=== PATIENT | female | born 1960 | race Caucasian/White ===

== ENCOUNTER 2024-07-05 08:20 | Day surgery (SDC) | payer MEDICARE ==
[~2024-07-05] VITALS: Ht 165.1 cm; Wt 79.5 kg
[~2024-07-05 08:20] MED LIST: CEFAZOLIN SODIUM 2 GM/20 ML SYR IV SCH; CYCLOBENZAPRINE10 MG PO; EFFEXOR XR75 MG PO; ESTRADIOL2 MG PO; HYDROCODON-ACE1 EA10 PO; HYDROCODON-ACE1 EA11 PO; IBLOOD GLUCOSE TEST STRIP 1 EA TEST VI PRN; IMITREX6 MG/0.51 SUB-Q; KEFLEX500 MG PO; LACTATED RINGER'S 1,000 ML IV SCH; LIDOCAINE HCL 1% 5 ML SDV INJ ONE; MULTI VITAMIN1 EACH PO; OSTERA TABLET1 EACH PO; OXYBUTYNIN CHLOR5 M1 PO; TRANEXAMIC ACID 2,000 MG in SODIUM CHLORIDE 0.9% 100 ML IV SCH; VITAMIN E OIL-V52 M1 TOP
[2024-07-05] MEDS ORDERED: SEVOFLURANE 250 ML BTL INH ONE (09:15)
[2024-07-05] MEDS ORDERED: Ropivacaine HCl 0.5% 30 ML VIAL ONE (10:04)
[2024-07-05] MEDS ORDERED: DEXAMETHASONE SOD PHOS 4 MG/ML VIAL ONE ×4 (10:04→12:22)
[2024-07-05] MEDS ORDERED: LIDOCAINE HCL 2% 5 ML SDV ONE ×2 (10:04→10:54)
[2024-07-05] MEDS ORDERED: MIDAZOLAM HCL 2 MG/2 ML VIAL ONE (10:04)
[2024-07-05] MEDS ORDERED: propofoL 200 MG/20 ML VIAL ONE (10:54)
[2024-07-05] MEDS ORDERED: ondansetron HCL 4 MG/2 ML VIAL ONE (10:54)
[2024-07-05] MEDS ORDERED: ACETAMINOPHEN 1,000 MG/100 ML VIAL ONE (11:15)
[2024-07-05 11:51] VITALS: BP 131/58
[2024-07-05] MEDS ORDERED: OXYCODONE HCL5 MG PO (11:57)
[2024-07-05] MEDS ORDERED: ondansetron HCL 4 MG/2 ML VIAL IV PRN (12:00)
[2024-07-05] MEDS ORDERED: NALOXONE HCL 0.4 MG SYR IV PRN (12:00)
[2024-07-05] MEDS ORDERED: droPERidol 5 MG/2 ML VIAL IV PRN (12:00)
[2024-07-05] MEDS ORDERED: HYDROmorphone HCL 1 MG/ML SYR IV PRN (12:00)
[2024-07-05] MEDS ORDERED: fentaNYL citrate 50 MCG/ML SDV IV PRN (12:00)
[2024-07-05] MEDS ORDERED: PROCHLORPERAZINE EDISYLATE 10 MG/2 ML VIAL IV PRN (12:00)
[2024-07-05] MEDS ORDERED: IBLOOD GLUCOSE TEST STRIP 1 EA TEST VI PRN (12:00)
[2024-07-05] MEDS ORDERED: BUPIVACAINE HCL 0.25% 30 ML SDV ONE (12:22)
[2024-07-05 13:00] VITALS: BP 112/65
[2024-07-05 13:06] VITALS: BP 112/66
--- NOTE | 2024-07-05 13:23 | NUR ---
AT BS. ASKED TO BRING CRUTCHES IN FOR P T TO SEE PT.
[2024-07-05 14:04] VITALS: BP 102/60
--- NOTE | 2024-07-05 15:02 | NUR ---
UP TO BSC AND VOIDS QS. HAS BEEEN TO PT. WANTS TO GO HOME ATE JELLO AND DRANK WATER. BLOCK EFFECTIVE. INSTRUCTED BLOCK CAN LAST 24 TO 48HRS. USES CRUTCHES AT HOME. DCD PER WC WITH .
--- NOTE | 2024-07-06 07:04 | OR ---
[facility] [address], [place] [address] Signed DATE OF OPERATION: 07/05/2024 SURGEON: Toby Frye MD PREOPERATIVE DIAGNOSIS: Left patellar fracture, displaced. POSTOPERATIVE DIAGNOSIS: Left patellar fracture, displaced. PROCEDURE PERFORMED: Open reduction and internal fixation of left patella. TEXTBOOK ASSOCIATE: Nanette Angel PA-C. Nanette was present and critical for all portions of procedure. ANESTHESIA: General. BLOOD LOSS: None. TOURNIQUET TIME: 30 minutes. IMPLANTS: Two Arthrex 3.5 screws with FiberTape. BRIEF HISTORY: Ingrid is a 63-year-old female, who suffered a ground level fall fracturing her patella. She was unable to attain or maintain a straight leg raise. Risks and benefits of operative treatment of this fracture were discussed with her and she elected to proceed. PROCEDURE IN DETAIL: Once consent was obtained she was taken to the operating room. After adequate anesthesia, she was placed on operating room table. All downside pressure points were well padded. The left leg was prepped and draped in a standard sterile fashion up to a well-padded proximal thigh tourniquet. Leg was exsanguinated using Esmarch bandage. Electronically Signed By: TOBY FRYE MD 07/06/24 0704 PATIENT NAME: INGRID YOU OPERATIVE REPORT DATE OF : 60 REPORT #: [id number] PHYSICIAN: TOBY FRYE MD PCP: JASON PEREZ MD REPORT IS CONFIDENTIAL AND NOT TO BE RELEASED WITHOUT AUTHORIZATION [facility] [address], [place] [address] Signed Tourniquet inflated to 250 mmHg. Standard anterior longitudinal incision was made through the skin and subcutaneous tissue. Skin flaps were developed medially and laterally. A small medial arthrotomy was undertaken and digital examination of the undersurface of the patella showed that it was well reduced. The C-clamp for the Arthrex set was then placed across the patella through separate stab incisions. The guidewire was then advanced on the medial side and then on the lateral side. Once this was completed, placement of guidewires were evaluated using image intensifier and found to be good. The guidewires were then overdrilled and a 32 and a 34 mm screw were placed. The guidewire was removed. The FiberTape was then placed through the medial screw from superior to inferior crisscrossed over and through the lateral screw superior to inferior. This was then taken through the superior medial corner. The FiberWire was then tied and tied as we could and two rows of knot were tightened. We then used the Arthrex tensioner to tension the knot to three stripes. Once this was completed, the knot was finished with three more rows and then the knot was buried in the medial retinaculum. The wound was then irrigated using normal saline. The arthrotomy was closed using #1 Vicryl. The subcutaneous tissue was closed using 0 Stratafix and skin with freida. Wound was dressed with Acticoat-7 dressing, ABD, and Chava wrap. She tolerated the procedure well. All sponge, needle, and instrument counts were correct. Toby Frye MD BA/MODL /[id number] Copies: ~ Electronically Signed By: TOBY FRYE MD 07/06/24 0704 PATIENT NAME: INGRID YOU OPERATIVE REPORT DATE OF : 60 REPORT #: [id number] PHYSICIAN: TOBY FRYE MD PCP: JASON PEREZ MD REPORT IS CONFIDENTIAL AND NOT TO BE RELEASED WITHOUT AUTHORIZATION
== END 2024-07-05 14:40 | disposition home or self-care (01) ==
LOC: DS 08:20
PROVIDERS: ATTEND Specialist
PROC: 0QSF04Z Reposition Left Patella with Internal Fixation Device, Open Approach (ICD-10-PCS; principal; 2024-07-05 11:25)
DX: S82.002A Unspecified fracture of left patella, initial encounter for closed fracture (principal); W18.30XA Fall on same level, unspecified, initial encounter; G43.909 Migraine, unspecified, not intractable, without status migrainosus; Z88.5 Allergy status to narcotic agent; Z88.6 Allergy status to analgesic agent; Z91.048 Other nonmedicinal substance allergy status; Z79.899 Other long term (current) drug therapy; Z87.891 Personal history of nicotine dependence
CPT/HCPCS: 01392; 64447; 73560; 97161; C1713; J0131; J0690; J1100; J2001; J2250; J2405; J2704; J2795; J7121